=== PATIENT | male | born 1975 | race Caucasian/White ===

== ENCOUNTER → 2016-10-05 | Day surgery (SDC) | payer OTHER ==
[~2016-10-05] MED LIST: FLONASE ALLERG9.9 ML; HYDROCODON-ACE1 EAC9 PO; LISINOPRIL20 MG; QVAR7.3 G1 INH; SINGULAIR PO; SKELAXIN PO; WARFARIN SODIUM6 M1 PO
--- NOTE | ~2016-10-05 | EKG ---
PATIENT: CLAUDE MCCRACKEN UNIT #: [id number] Ventricular Rate: 77 BPM Atrial Rate: 77 BPM P-R Interval: 144 ms QRS Duration: 88 ms Q-T Interval: 374 ms QTC Calculation(Bezet): 423 ms P Whitmore: 33 degrees Calculated R Whitmore: 50 degrees Calculated T Whitmore: 18 degrees Diagnosis Line: Normal sinus rhythm Diagnosis Line: Normal ECG Diagnosis Line: No previous ECGs available Diagnosis Line: Confirmed by GRICEL GRAHAM MD ([id number]) on Diagnosis Line: 10/05/2016 11:00:36 PM INTERPRETING MD: DILMA
--- NOTE | ~2016-10-05 | OR ---
Unit #: [id number] #: [id number] Patient: CLAUDE MCCRACKEN JR [id number] [address] [address] [id number] O MR#: [id number] NAME: CLAUDE MCCRACKEN JR ROOM: Date of Procedure: 10/05/2016 Admission Date: 10/05/2016 Surgeon: Raymond Collado M.D. : 1975 Attending Physician: Raymond Collado M.D. Primary Care Physician: Andrew Ridley M.D. OPERATIVE REPORT PREOPERATIVE DIAGNOSIS History of bladder cancer. POSTOPERATIVE DIAGNOSIS History of bladder cancer. PROCEDURE PERFORMED Cystoscopy, bladder biopsy, fulguration. ANESTHESIA General. DESCRIPTION OF PROCEDURE After informed consent, he was taken to the operative room, placed under general anesthetic, positioned in lithotomy. His penis and perineum were prepped and draped in a usual sterile fashion. Cystoscopy was performed near the left ureteral orifice. The frondular papillary looking area was visible. There was also another area more medial to the orifice that did not appear papillary, but less than normal. Therefore, I took a biopsy of both areas until there was no lesion visible. Fulguration was administered using a Bugbee cautery. There was no active bleeding at the end of the procedure. Remained of his bladder was inspected. There was no other tumors or questionable area. There were no erythematous areas. The patient will be discharged home. Return to see me as an outpatient. He will resume his Coumadin in approximately 3 days. Dictated by... Marielle Somers/jayceel TD: 10/06/2016 04:43 JOB #: [id number] Unit #: [id number] #: [id number] Patient: CLAUDE MCCRACKEN JR OPERATIVE REPORT X Raymond Collado MD X PROCEDURE OPERATIVE NOTE
[2016-10-05 13:05] LABS: PROTHROMBIN TIME (PATIENT) 10.5 SECONDS (9.6-11.5)
== END | disposition home or self-care (01) ==
LOC: CSUR 12:16
PROVIDERS: Urology
DX: N50.89 Other specified disorders of the male genital organs (principal); Z85.51 Personal history of malignant neoplasm of bladder; Z88.5 Allergy status to narcotic agent; Z91.041 Radiographic dye allergy status; Z79.891 Long term (current) use of opiate analgesic; Z79.899 Other long term (current) drug therapy; Z90.49 Acquired absence of other specified parts of digestive tract; Z98.890 Other specified postprocedural states
CPT/HCPCS: 85610; 88305; 93005; J0690; J2250; J2405; J3010